=== PATIENT | male | born 1980 | race Two or more races ===

== ENCOUNTER 2021-10-15 00:03 | Emergency (ER) | payer SELFPAY ==
[~2021-10-15] VITALS: Ht 172.7 cm; Wt 100.0 kg
[2021-10-15 00:04] VITALS: BP 183/88
[2021-10-15] MEDS ORDERED: VALS160T2 PO (00:25)
[2021-10-15] MEDS ORDERED: PERTUSS(ACELL),DIPH,TET VAC/PF 0.5 ML SYRINGE IM. ONE (04:30)
== END 2021-10-15 05:00 | disposition home or self-care (01) ==
LOC: EMS 00:04
DX: S61.211A Laceration without foreign body of left index finger without damage to nail, initial encounter (principal); I10 Essential (primary) hypertension; W45.8XXA Other foreign body or object entering through skin, initial encounter; Y93.89 Activity, other specified; Y92.89 Other specified places as the place of occurrence of the external cause; Y99.0 Civilian activity done for income or pay
CPT/HCPCS: 90471; 90715; 99283